=== PATIENT | male | born 1980 | race Caucasian/White ===

== ENCOUNTER 2021-09-23 14:40 | Emergency (ER) | payer OTHER ==
[2021-09-23] MEDS ORDERED: Ketorolac 30 MG/ML SDV IVPUSH ONE (16:14)
[2021-09-23] MEDS ORDERED: HYDROmorphone 1 MG/ML Syringe IVPUSH ONE (16:14)
== END 2021-09-23 17:56 | disposition home or self-care (01) ==
LOC: JP.ED 14:40
DX: M54.50 Low back pain, unspecified (principal)
CPT/HCPCS: 96374; 96375; 99283; J1170; J1885